=== PATIENT | female | born 1955 | race Caucasian/White ===

== ENCOUNTER 2022-03-12 15:25 | Observation (INO) ==
--- NOTE | 2022-03-12 16:07 | Emergency Department Note ---
Impression & Plan Falls frequently, Generalized muscle weakness, Ambulatory dysfunction ED Provider Note NAME: GHAZAL REED AGE: 66 SEX: F : 1955 ARRIVES VIA: Ambulance INFORMANT: Patient, ED PROVIDER(S): Ta Evans DO CHIEF COMPLAINT: Fall HPI: The patient is a 66-year-old female who presented to the emergency department after a fall. The patient fell injuring her hip. She states she has pain in both hips but mostly on the left. She states she was able to ambulate using a walker. She denies having any chest pain or difficulty breathing. She does not think she lost consciousness. She denies having any fever or recent illnesses. She is not recently been seen by her doctor. She lives alone. She states she has been compliant with her usual outpatient medications. She called 911 because of severe pain that she was trying to ambulate. ROS: See above HPI for pertinent positives & negatives. A total of 10 systems reviewed and were otherwise negative. PAST MEDICAL HISTORY: See Below PAST SURGICAL HISTORY: See Below FAMILY HISTORY: See Below SOCIAL HISTORY: See Below HOME MEDICATIONS: See Below ALLERGIES: See Below VITALS: See Below PHYSICAL EXAMINATION: GENERAL: The patient is awake and alert. She is somewhat anxious appearing. EYES: The conjunctivae are clear. The pupils are round and reactive. EARS, NOSE, MOUTH AND THROAT: The nose is without any evidence of any deformity. Mucous membranes are moist. Tongue is midline. NECK: The neck is nontender and supple. RESPIRATORY: Normal respiratory effort is noted there is no evidence of wheezing rhonchi or rales CARDIOVASCULAR: Regular rate and rhythm noted there no murmurs rubs or gallops normal S1 normal S2. GASTROINTESTINAL: The abdomen is soft. Abdomen is nontender. BACK: No midline tenderness or or step-off noted range of motion in flexion extension as well as rotation no signs of muscle spasm noted MUSCULOSKELETAL/EXTREMITIES: There is pain with range of motion testing of both hips. There is no shortening or deformity. SKIN: There is no obvious evidence of any rash. There are no petechiae, pallor or cyanosis noted. NEUROLOGIC: Patient is awake alert and oriented x3. Strength is symmetric but diminished bilaterally. MEDICAL DECISION MAKING: The patient is a 66-year-old female who presented to the emergency department by ambulance for difficulty ambulating. The patient was at home and had multiple falls today. She presented to the emergency department by ambulance. She normally walks with a walker. She was evaluated in the emergency department. Radiographic studies were obtained. She had no specific injury noted on radiographic studies. Attempt to ambulate the patient did show that she had very severe pain and difficulty walking. This reason I discussed her case with the on-call [facility] hospitalist. She may require further evaluation for rehab. Triage Nursing notes reviewed. Prior medical records reviewed Vital Signs: reviewed and remarkable for no significant abnormalities Differential diagnosis: Infection, dehydration, metabolic abnormality, hypo/hyperglycemia, electrolyte disturbance, anemia, hypoxia, cardiac sources, intracerebral event, toxicologic, neurologic, as well as other pathologies. ER treatment provided: See below Diagnostics interpreted by me: ECG: EKG was obtained in the emergency department. My interpretation is normal sinus rhythm at 76 bpm. There is no ectopy. There is no acute ST segment abnormalities noted. Poor R wave progression was noted. No previous tracing was available. Cardiac Monitoring: An order was placed for continuous cardiac monitoring. The monitor shows a rate of 86 bpm with sinus rhythm. Laboratory studies: As stated above and show below. Imaging studies: See below Consultation(s): The case was discussed with the on-call [facility] hospitalist. They will evaluate the patient in the emergency department. Past Med/Surg History Medical History Hypertension Surgical History History of delivery History of cholecystectomy History of surgery shunt placed (unknown location) Family History Father Diabetes Heart disease Hypertension Daughter Hypertension Other Allergies Hearing loss No family history of bleeding disorder Denies family history of Cancer Stroke Asthma Social History Smoking Status: Never smoker Hx Alcohol Use: No Hx Substance Use: No Preferred Language: Nauruan marital status: / current occupational status: retired and disabled How many Children do You have: 3 Feels Safe at Home: Yes Allergies Allergies Allergy/AdvReac Type Severity Reaction Status Date / Time chocolate flavor Allergy Unknown GI UPSET Verified 01/18/22 16:50 milk Allergy Unknown GI UPSET Verified 01/18/22 16:50 nut - unspecified Allergy Unknown GI Unverified 01/18/22 16:50 UPSET-PEANUTS, TREE NUTS codeine AdvReac Intermediate nausea Verified 01/18/22 16:50 vomiting Home Meds Home Medications Medication Instructions Recorded Confirmed amlodipine 10 mg tablet (Norvasc) 10 mg PO QAM 07/08/21 01/18/22 calcium carbonate 600 mg-vitamin 1 tab PO DAILY@1200 07/08/21 01/18/22 D3 5 mcg (200 unit) tablet (Calcium 600 + D(3)) divalproex 250 mg tablet,delayed 250 mg PO BID 07/08/21 01/18/22 release (Depakote) famotidine 40 mg tablet (Pepcid) 40 mg PO QAM 07/08/21 01/18/22 gabapentin 300 mg capsule 300 mg PO UD 07/08/21 01/18/22 (Neurontin) levothyroxine 100 mcg tablet 100 mcg PO QAM 07/08/21 01/18/22 (Synthroid) loratadine 10 mg tablet (Allergy 10 mg PO QAM 07/08/21 01/18/22 Relief (loratadine)) losartan 25 mg tablet (Cozaar) 25 mg PO QAM 07/08/21 01/18/22 magnesium oxide 400 mg (241.3 mg 400 mg PO DAILY@1200 07/08/21 01/18/22 magnesium) tablet (MagOx) montelukast 10 mg tablet 10 mg PO HS 07/08/21 01/18/22 (Singulair) pantoprazole 20 mg tablet,delayed 20 mg PO QAM 07/08/21 01/18/22 release (Protonix) sertraline 100 mg tablet (Zoloft) 100 mg PO HS 07/08/21 01/18/22 sucralfate 1 gram tablet (Carafate) 1 g PO QID 07/08/21 01/18/22 acetaminophen 500 mg tablet (Pain 1,000 mg PO TID 01/18/22 01/18/22 Relief Extra Strength) buspirone 5 mg tablet 5 mg PO DAILY 01/18/22 01/18/22 Previous Rx's Medication Instructions Recorded tamsulosin 0.4 mg capsule 0.4 mg PO DAILY #90 cap 12/02/21 Results & Data (ED) Vital Signs Vital Signs - 24 hr 03/12/22 15:30 03/12/22 16:00 03/12/22 16:03 Temperature 36.8 C Temperature Source Oral Pulse Rate 78 71 Pulse Rate [Apical] Pulse Rate from SpO2 Sensor 72 Respiratory Rate 16 21 Respiratory Effort / Characteristics Non-Labored Respiratory Depth Normal Blood Pressure 126/68 114/51 L Blood Pressure [Right Arm] Blood Pressure Mean 87 72 Blood Pressure Mean [Right Arm] Pulse Oximetry 96 98 96 Oxygen Delivery Method Room Air Room Air Sepsis Recent Fever Within 48 Hours No Sepsis New/Unexplained Change in Mental Status No Sepsis Action Taken by Nursing No Action Required 03/12/22 16:30 03/12/22 17:10 03/12/22 17:31 Temperature Temperature Source Pulse Rate 77 8 L Pulse Rate [Apical] 72 Pulse Rate from SpO2 Sensor Respiratory Rate 16 16 Respiratory Effort / Characteristics Non-Labored Respiratory Depth Normal Blood Pressure 146/56 H Blood Pressure [Right Arm] 136/72 Blood Pressure Mean 86 Blood Pressure Mean [Right Arm] 93 Pulse Oximetry 97 99 Oxygen Delivery Method Room Air Room Air Sepsis Recent Fever Within 48 Hours Sepsis New/Unexplained Change in Mental Status Sepsis Action Taken by Nursing 03/12/22 17:33 Temperature Temperature Source Pulse Rate 86 Pulse Rate [Apical] Pulse Rate from SpO2 Sensor 86 Respiratory Rate 16 Respiratory Effort / Characteristics Respiratory Depth Blood Pressure 136/76 Blood Pressure [Right Arm] Blood Pressure Mean 96 Blood Pressure Mean [Right Arm] Pulse Oximetry 96 Oxygen Delivery Method Sepsis Recent Fever Within 48 Hours Sepsis New/Unexplained Change in Mental Status Sepsis Action Taken by Detention Medications Current Medication List: was personally reviewed by me Laboratory Data Attestation: I reviewed the patient's lab results. Result diagrams: 03/12/22 15:54 03/12/22 15:54 Lab Results 03/12/22 03/12/22 03/12/22 Range/Units 15:54 15:54 15:54 WBC 7.95 (4.8-10.8) K/uL RBC 4.31 (4.2-5.4) M/uL Hgb 12.3 (12.0-16.0) g/dL Hct 37.8 (37-47) % MCV 87.7 (80-100) fL MCH 28.5 (25-34) pg MCHC 32.5 (32-36) g/dL RDW Std Deviation 45.7 (36.4-46.3) fL RDW Coeff of Debra 14.1 (11.5-14.5) % Plt Count 226 (130-400) K/uL MPV 9.4 (7.4-10.4) fL Immature Gran % (Auto) 0.3 % Neut % (Auto) 60.5 % Lymph % (Auto) 25.4 % [place] % (Auto) 11.2 % Eos % (Auto) 2.3 % Baso % (Auto) 0.3 % Neut # (Auto) 4.82 (1.4-6.5) K/uL Lymph # (Auto) 2.02 (1.2-3.4) K/uL [place] # (Auto) 0.89 H (0.11-0.59) K/uL Eos # (Auto) 0.18 (0-0.5) K/uL Baso # (Auto) 0.02 (0-0.2) K/uL Immature Gran # (Auto) 0.02 (0.00-0.02) K/uL PT 10.1 (9.0-12.0) Seconds INR 0.9 (0.9-1.1) APTT 26.6 (21.0-31.0) Seconds PTT Ratio 1.0 Sodium (136-145) mmol/L Potassium (3.5-5.1) mmol/L Chloride (98-107) mmol/L Carbon Dioxide (21-32) mmol/L Anion Gap (3-11) BUN (6-23) mg/dl Creatinine (0.6-1.2) mg/dl Est Cr Clr Drug Dosing Est GFR ( Amer) ml/min Est GFR (Non-Af Amer) ml/min BUN/Creatinine Ratio (10-20) Glucose (70-99(Fasting)) mg/dl Calcium (8.5-10.1) mg/dl Magnesium (1.7-2.4) mg/dl Total Bilirubin (0.2-1.0) mg/dl AST (13-39) U/L ALT (7-52) U/L Alkaline Phosphatase (34-104) U/L Total Creatine Kinase (26-192) U/L Troponin I High Sens < 2.3 (0-14) pg/ml Total Protein (6.0-8.3) gm/dl Albumin (3.4-5.0) gm/dl Globulin (2.5-4.0) gm/dl Albumin/Globulin Ratio (0.9-2) TSH (0.300-4.500) uIu/ml 03/12/22 03/12/22 Range/Units 15:54 15:54 WBC (4.8-10.8) K/uL RBC (4.2-5.4) M/uL Hgb (12.0-16.0) g/dL Hct (37-47) % MCV (80-100) fL MCH (25-34) pg MCHC (32-36) g/dL RDW Std Deviation (36.4-46.3) fL RDW Coeff of Debra (11.5-14.5) % Plt Count (130-400) K/uL MPV (7.4-10.4) fL Immature Gran % (Auto) % Neut % (Auto) % Lymph % (Auto) % [place] % (Auto) % Eos % (Auto) % Baso % (Auto) % Neut # (Auto) (1.4-6.5) K/uL Lymph # (Auto) (1.2-3.4) K/uL [place] # (Auto) (0.11-0.59) K/uL Eos # (Auto) (0-0.5) K/uL Baso # (Auto) (0-0.2) K/uL Immature Gran # (Auto) (0.00-0.02) K/uL PT (9.0-12.0) Seconds INR (0.9-1.1) APTT (21.0-31.0) Seconds PTT Ratio Sodium 142 (136-145) mmol/L Potassium 4.0 (3.5-5.1) mmol/L Chloride 105 (98-107) mmol/L Carbon Dioxide 28 (21-32) mmol/L Anion Gap 9 (3-11) BUN 8 (6-23) mg/dl Creatinine 0.64 (0.6-1.2) mg/dl Est Cr Clr Drug Dosing Not Reportable Est GFR ( Amer) 109.3 ml/min Est GFR (Non-Af Amer) 94.3 ml/min BUN/Creatinine Ratio 12.5 (10-20) Glucose 113 H (70-99(Fasting)) mg/dl Calcium 9.7 (8.5-10.1) mg/dl Magnesium 2.0 (1.7-2.4) mg/dl Total Bilirubin 0.4 (0.2-1.0) mg/dl AST 17 (13-39) U/L ALT 18 (7-52) U/L Alkaline Phosphatase 61 (34-104) U/L Total Creatine Kinase 47 (26-192) U/L Troponin I High Sens (0-14) pg/ml Total Protein 7.0 (6.0-8.3) gm/dl Albumin 4.3 (3.4-5.0) gm/dl Globulin 2.7 (2.5-4.0) gm/dl Albumin/Globulin Ratio 1.6 (0.9-2) TSH 3.508 (0.300-4.500) uIu/ml Administered Medications Discontinued Medications Sodium Chloride (Nss) 500 mls @ 999 mls/hr IV .Q31M DEMETRIUS Stop: 03/12/22 16:45 Last Admin: 03/12/22 16:33 Dose: 999 mls/hr Documented by: [id number] Imaging Data Radiologist's Impression: Cervical Spine CT 03/12/22 16:03 CT SCAN OF THE CERVICAL SPINE CLINICAL HISTORY: Fall. COMPARISON STUDY: CT of the cervical spine dated 01/18/2022. TECHNIQUE: CT scan of the cervical spine is performed from the skull base to the upper thoracic spine. Images are reviewed in the axial, sagittal, and coronal planes. IV contrast was not administered for this examination. A dose lowering technique was utilized adhering to the principles of ALARA. FINDINGS: Skeletal structures: The skeletal structures are osteopenic. There is no evidence of fracture or subluxation involving the cervical spine. Vertebral body height and alignment are maintained. There is straightening of the cervical lordosis. Anterior osteophytes are seen throughout. The odontoid process and lateral masses are intact. The atlantoaxial articulation is preserved noting mild productive degenerative change. The spinous processes appear intact. There is mild multilevel cervical spondylosis. Uncovertebral and facet arthropathy are noted at several levels. Intervertebral discs: There is moderate to advanced disc space narrowing at C4- C5, C5-C6, and C6-C7 with associated endplate sclerosis. Milder narrowing is seen at the remaining cervical levels. Central canal: Large posterior disc osteophyte complexes at C4-C5, C5-C6, and C6-C7 likely contribute to acquired compromise of the central canal. Soft tissues: The prevertebral and paraspinous soft tissues are within normal limits. Atherosclerotic calcification is noted in the carotid bulbs. The thyroid gland is heterogeneous. A ventriculostomy catheter is noted in the soft tissues of the right anterior neck. Calvarium: The visualized calvarium at the skull base appears intact. Brain parenchyma: Partially visualized brain parenchyma at the skull base shows involutional change and severe hydrocephalus.. Sinuses and mastoids: The visualized paranasal sinuses are clear. The mastoid air cells are well pneumatized. Lung apices: Clear as visualized. IMPRESSION: 1. There is no evidence of fracture or subluxation involving the cervical spine. 2. Osteopenia and spondylotic change as above. ACT 112: Negative or not required by law. Electronically signed by: Bryon Moscoso M.D. 03/12/2022 4:52 PM Chest X-Ray 03/12/22 16:03 XR chest 1V portable CLINICAL HISTORY: weakness TECHNIQUE: Single frontal radiograph of the chest was obtained. Comparison: Comparison is made to chest radiographs 01/18/2022 FINDINGS: No lines and tubes are seen. Calcified aortic knob is seen. The lungs are clear. No evidence of pleural effusion or pneumothorax. IMPRESSION: No acute chest disease. ACT 112: Negative or not required by law. Electronically signed by: Merlin Franco M.D. 03/12/2022 4:[address] 03/12/22 16:03 CT head/brain wo con CLINICAL HISTORY: fall Technique: Contiguous axial CT images of the head were acquired from the base of the skull to the vertex without intravenous contrast administration. Images were viewed in brain, subdural and bone windows. Automated dose lowering techniques and/or adjustment according to patient size were utilized for this exam. Comparison: Comparison is made to CT head 01/18/2022 Findings: Redemonstration of ventriculomegaly with a shunt catheter terminating in the left aspect of the third ventricle and/or left lateral ventricle. Imaged portions of the paranasal sinuses and mastoid air cells are clear. The orbits appear normal. There are no acute fractures of the calvaria or scalp swelling. Impression: No evidence of hemorrhage or other acute finding. Redemonstration of hydrocephalus with a NETWORK CONTRACT MANAGER shunt in place. ACT 112: Negative or not required by law. Electronically signed by: Merlin Franco M.D. 03/12/2022 4:53 PM Hip/Pelvis X-Ray 03/12/22 16:03 SINGLE VIEW PELVIS; 2 VIEWS RIGHT HIP; 2 VIEWS LEFT HIP CLINICAL HISTORY: Fall. FINDINGS: An AP view of the pelvis with AP and frog-leg views of the right and left hip are correlated with pelvic CT dated 07/08/2021. The skeletal structures are osteopenic. There is no radiographic evidence of acute fracture involving the hips or bony pelvis. Mild degenerative joint space narrowing is present in the hips, right greater than left. The sacroiliac joints are normal. The overlying soft tissues are within normal limits. Phleboliths are noted in the pelvis. IMPRESSION: No acute bony abnormality is identified. Electronically signed by: Bryon Moscoso M.D. 03/12/2022 4:39 PM Discharge Plan Visit Data Chief Complaint: Fall ED Provider: Ta Evans Discharge Problem: Falls frequently, Generalized muscle weakness, Ambulatory dysfunction Patient Disposition: Being Evaluated by Hospitalist Forms Stand Alone Forms: [facility] Prescriptions Prescriptions: No Action tamsulosin 0.4 mg capsule 0.4 mg PO DAILY Qty: 90 RF: 3 buspirone 5 mg tablet 5 mg PO DAILY RF: 0 acetaminophen [Pain Relief Extra Strength] 500 mg tablet 1,000 mg PO TID RF: 0 divalproex [Depakote] 250 mg tablet,delayed release (DR/EC) 250 mg PO BID RF: 0 sucralfate [Carafate] 1 gram tablet 1 g PO QID RF: 0 famotidine [Pepcid] 40 mg tablet 40 mg PO QAM RF: 0 sertraline [Zoloft] 100 mg tablet 100 mg PO HS RF: 0 calcium carbonate-vitamin D3 [Calcium 600 + D(3)] 600 mg(1,500mg) -200 unit tablet 1 tab PO DAILY@1200 RF: 0 pantoprazole [Protonix] 20 mg tablet,delayed release (DR/EC) 20 mg PO QAM RF: 0 levothyroxine [Synthroid] 100 mcg tablet 100 mcg PO QAM RF: 0 magnesium oxide [MagOx] 400 mg (241.3 mg magnesium) tablet 400 mg PO DAILY@1200 RF: 0 amlodipine [Norvasc] 10 mg tablet 10 mg PO QAM RF: 0 losartan [Cozaar] 25 mg tablet 25 mg PO QAM RF: 0 gabapentin [Neurontin] 300 mg capsule 300 mg PO UD RF: 0 montelukast [Singulair] 10 mg tablet 10 mg PO HS RF: 0 loratadine [Allergy Relief (loratadine)] 10 mg tablet 10 mg PO QAM RF: 0 Referrals Referrals: Andrew Diane MD [Primary Care Provider] -
[2022-03-12 16:22] LABS: Basophils # (auto) 0.02 K/uL (0-0.2); Basophils % (auto) 0.3 %; Eosinophils # (auto) 0.18 K/uL (0-0.5); Eosinophils % (auto) 2.3 %; Hematocrit (blood only) 37.8 % (37-47); Hemoglobin 12.3 g/dL (12.0-16.0); Immature Granulocytes # (auto) 0.02 K/uL (0.00-0.02); Immature Granulocytes % (auto) 0.3 %; Lymphocytes # (auto) 2.02 K/uL (1.2-3.4); Lymphocytes % (auto) 25.4 %; Mean Corpuscular Hemoglobin 28.5 pg (25-34); Mean Corpuscular Hgb Conc 32.5 g/dL (32-36); Mean Corpuscular Volume 87.7 fL (80-100); Mean Platelet Volume 9.4 fL (7.4-10.4); Monocytes # (auto) 0.89 K/uL (0.11-0.59); Monocytes % (auto) 11.2 %; Neutrophils # (auto) 4.82 K/uL (1.4-6.5); Neutrophils % (auto) 60.5 %; Platelet Count 226 K/uL (130-400); RDW Coefficient of Variation 14.1 % (11.5-14.5); RDW Standard Deviation 45.7 fL (36.4-46.3); Red Blood Count 4.31 M/uL (4.2-5.4); White Blood Count 7.95 K/uL (4.8-10.8)
[2022-03-12] MEDS: SODIUM CHLORIDE 0.9% 500 ML IV SCH ×2 (16:33→18:47)
--- NOTE | 2022-03-12 16:41 | XRay Report ---
SINGLE VIEW PELVIS; 2 VIEWS RIGHT HIP; 2 VIEWS LEFT HIP CLINICAL HISTORY: Fall. FINDINGS: An AP view of the pelvis with AP and frog-leg views of the right and left hip are correlate d with pelvic CT dated 07/08/2021. The skeletal structures are osteopenic. There is no radiographic govind dence of acute fracture involving the hips or bony pelvis. Mild degenerative joint space narrowing is present in the hips, right greater than left. The sacroiliac joints are normal. The overlying soft t issues are within normal limits. Phleboliths are noted in the pelvis. IMPRESSION: No acute bony abnormality is identified. Electronically signed by: Bryon Moscoso M.D. 03/12/2022 4:39 PM
--- NOTE | 2022-03-12 16:41 | XRay Report ---
XR chest 1V portable CLINICAL HISTORY: weakness TECHNIQUE: Single frontal radiograph of the chest was obtained. Comparison: Comparison is made to chest radiographs 01/18/2022 FINDINGS: No lines and tubes are seen. Calcified aortic knob is seen. The lungs are clear. No evidence of pleur al effusion or pneumothorax. IMPRESSION: No acute chest disease. ACT 112: Negative or not required by law. Electronically signed by: Merlin Franco M.D. 03/12/2022 4:40 PM
[2022-03-12 16:42] LABS: INR 0.9 (0.9-1.1); Partial Thromboplastin Time 26.6 Seconds (21.0-31.0); Prothrombin Time 10.1 Seconds (9.0-12.0)
--- NOTE | 2022-03-12 16:53 | CT Scan Report ---
CT SCAN OF THE CERVICAL SPINE CLINICAL HISTORY: Fall. COMPARISON STUDY: CT of the cervical spine dated 01/18/2022. TECHNIQUE: CT scan of the cervical spine is performed from the skull base to the upper thoracic spine . Images are reviewed in the axial, sagittal, and coronal planes. IV contrast was not administered fo r this examination. A dose lowering technique was utilized adhering to the principles of ALARA. FINDINGS: Skeletal structures: The skeletal structures are osteopenic. There is no evidence of fracture or subl uxation involving the cervical spine. Vertebral body height and alignment are maintained. There is st raightening of the cervical lordosis. Anterior osteophytes are seen throughout. The odontoid process and lateral masses are intact. The atlantoaxial articulation is preserved noting mild productive dege nerative change. The spinous processes appear intact. There is mild multilevel cervical spondylosis. Uncovertebral and facet arthropathy are noted at several levels. Intervertebral discs: There is moderate to advanced disc space narrowing at C4-C5, C5-C6, and C6-C7 w ith associated endplate sclerosis. Milder narrowing is seen at the remaining cervical levels. Central canal: Large posterior disc osteophyte complexes at C4-C5, C5-C6, and C6-C7 likely contribute to acquired compromise of the central canal. Soft tissues: The prevertebral and paraspinous soft tissues are within normal limits. Atherosclerotic calcification is noted in the carotid bulbs. The thyroid gland is heterogeneous. A ventriculostomy c atheter is noted in the soft tissues of the right anterior neck. Calvarium: The visualized calvarium at the skull base appears intact. Brain parenchyma: Partially visualized brain parenchyma at the skull base shows involutional change a nd severe hydrocephalus.. Sinuses and mastoids: The visualized paranasal sinuses are clear. The mastoid air cells are well pneu matized. Lung apices: Clear as visualized. IMPRESSION: 1. There is no evidence of fracture or subluxation involving the cervical spine. 2. Osteopenia and spondylotic change as above. ACT 112: Negative or not required by law. Electronically signed by: Bryon Moscoso M.D. 03/12/2022 4:52 PM
[2022-03-12 16:54] LABS: Alanine Aminotransferase 18 U/L (7-52); Albumin Globulin Ratio 1.6 (0.9-2); Albumin Level 4.3 gm/dl (3.4-5.0); Alkaline Phosphatase 61 U/L (34-104); Anion Gap 9 (3-11); Aspartate Aminotransferase 17 U/L (13-39); BUN Creatinine Ratio 12.5 (10-20); Bilirubin,Total 0.4 mg/dl (0.2-1.0); Blood Urea Nitrogen 8 mg/dl (6-23); Calcium 9.7 mg/dl (8.5-10.1); Carbon Dioxide 28 mmol/L (21-32); Chloride 105 mmol/L (98-107); Creatine Kinase 47 U/L (26-192); Est GFR (African American) 109.3 ml/min; Est GFR (Non-African American) 94.3 ml/min; Globulin 2.7 gm/dl (2.5-4.0); Glucose 113 mg/dl (70-99(Fasting)); Sodium 142 mmol/L (136-145)
--- NOTE | 2022-03-12 16:54 | CT Scan Report ---
CT head/brain wo con CLINICAL HISTORY: fall Technique: Contiguous axial CT images of the head were acquired from the base of the skull to the tri yee without intravenous contrast administration. Images were viewed in brain, subdural and bone [facility]. Automated dose lowering techniques and/or adjustment according to patient size were utilized for this exam. Comparison: Comparison is made to CT head 01/18/2022 Findings: Redemonstration of ventriculomegaly with a shunt catheter terminating in the left aspect of the third ventricle and/or left lateral ventricle. Imaged portions of the paranasal sinuses and mastoid air cells are clear. The orbits appear normal. There are no acute fractures of the calvaria or scalp swelling. Impression: No evidence of hemorrhage or other acute finding. Redemonstration of hydrocephalus with a FUNDRAISING DIRECTOR shunt in place. ACT 112: Negative or not required by law. Electronically signed by: Merlin Franco M.D. 03/12/2022 4:53 PM
--- NOTE | 2022-03-12 19:52 | History & Physical Report ---
Date of Service March 12, 2022 Assessment & Plan (1) Ambulatory dysfunction: Plan: 66-year-old woman with medical history of recurrent falls, polyneuropathy, hydrocephalus, hypertension, GERD, and depression, who presents to the ED after another fall. Now awaiting evaluation for placement in long-term living facility. Ambulatory dysfunction/falls -Normal labs. No abnormalities detected on imaging. * Admitted to [facility] without telemetry * Case management consult placed. Depression/anxiety * Continue home sertraline, buspirone Polyneuropathy/chronic headache * Continue home gabapentin, Depakote, Tylenol GERD * Home Pepcid Urinary incontinence * Continue home tamsulosin Hypothyroidism -TSH 3.5 * Continue home levothyroxine Hypertension * Continue home amlodipine, losartan Code: DNR/DNI Dispo: Med-Surg FEN/GI: Regular diet DVT Prophylaxis: Lovenox 40 mg q24h PT/OT: Ordered (2) Retention of urine, unspecified: (3) GERD (gastroesophageal reflux disease): (4) Depression: History of Present Illness Chief Complaint: Fall Primary Care Provider: Andrew Diane MD 66-year-old woman with a medical history of hypertension, neuropathy, GERD, seizures, hypothyroidism, and depression, who presents today via ambulance to the emergency room after a fall. She usually ambulates with her walker, but has been growing weaker for months now. She admits to having multiple falls before this incident, though she was usually able to get back up and without lingering pain. She denies loss of consciousness. She denies recent illness. She reported hip pain bilaterally (left >right). Patient lives alone. She reports being compliant with her medications, and she has them bubble wrapped and sent to her by her pharmacy. ED course: Lab work was largely within normal limits. Imaging (CT cervical spi ne, CXR, CT head, XR hip/pelvis) all negative for acute trauma or abnormalities. However, on exam, she was severely limited without her walker, with poor mobility with it. Allergies Allergy/AdvReac Type Severity Reaction Status Date / Time chocolate flavor Allergy Unknown GI UPSET Verified 03/12/22 19:53 milk Allergy Unknown GI UPSET Verified 03/12/22 19:53 nut - unspecified Allergy Unknown GI Unverified 03/12/22 19:53 UPSET-PEANUTS, TREE NUTS codeine AdvReac Intermediate nausea Verified 03/12/22 19:53 vomiting Home Medications Medication Instructions Recorded Confirmed Type amlodipine 10 mg tablet (Norvasc) 10 mg PO QAM 07/08/21 03/12/22 History calcium carbonate 600 mg-vitamin 1 tab PO DAILY@1200 07/08/21 03/12/22 History D3 5 mcg (200 unit) tablet (Calcium 600 + D(3)) divalproex 250 mg tablet,delayed 250 mg PO BID 07/08/21 03/12/22 History release (Depakote) famotidine 40 mg tablet (Pepcid) 40 mg PO QAM 07/08/21 03/12/22 History gabapentin 300 mg capsule See Rx Instructions .ROUTE .COMPLEX 07/08/21 03/12/22 History (Neurontin) levothyroxine 100 mcg tablet 100 mcg PO QAM 07/08/21 03/12/22 History (Synthroid) loratadine 10 mg tablet (Allergy 10 mg PO QAM 07/08/21 03/12/22 History Relief (loratadine)) losartan 25 mg tablet (Cozaar) 25 mg PO QAM 07/08/21 03/12/22 History magnesium oxide 400 mg (241.3 mg 400 mg PO DAILY@1200 07/08/21 03/12/22 History magnesium) tablet (MagOx) montelukast 10 mg tablet 10 mg PO HS 07/08/21 03/12/22 History (Singulair) pantoprazole 20 mg tablet,delayed 20 mg PO QAM 07/08/21 03/12/22 History release (Protonix) sertraline 100 mg tablet (Zoloft) 100 mg PO HS 07/08/21 03/12/22 History sucralfate 1 gram tablet (Carafate) 1 g PO QID 07/08/21 03/12/22 History acetaminophen 500 mg tablet (Pain 1,000 mg PO TID 01/18/22 03/12/22 History Relief Extra Strength) buspirone 5 mg tablet 5 mg PO QAM 01/18/22 03/12/22 History tamsulosin 0.4 mg capsule 0.4 mg PO QAM 03/12/22 03/12/22 History Past Med/Surg History Medical History (Updated 03/12/22 @ 20:00 by Daisha Sinha MD) Hypertension Surgical History History of delivery History of cholecystectomy History of surgery shunt placed (unknown location) Family History Father Diabetes Heart disease Hypertension Daughter Hypertension Other Allergies Hearing loss No family history of bleeding disorder Denies family history of Cancer Stroke Asthma Social History Smoking Status: Never smoker Second Hand Exposure: No; Do You Dip or Chew Tobacco: No; Tobacco Cessation Education Requested by Patient: No Hx Alcohol Use: No Hx Substance Use: No Preferred Language: Indonesian Communication Ability: Effective What Job Titles Mean Required: No Beliefs That Will Affect Care: None marital status: / Current Living Situation: Alone current occupational status: retired and disabled How many Children do You have: 3 Other Information That Helps Us Care for You: No Feels Safe at Home: Yes Safety Concerns: Feels Safe At This Time Assistive Devices: Walker and Wheelchair Review of Systems Review of Systems: All systems reviewed & are unremarkable except as noted in HPI & below Physical Exam Physical Exam: General: Patient is AAO x3. She appears mildly anxious, but is in no acute distress. HEENT: Oropharynx is markedly dry; no lymphadenopathy; normal dentition. CV: Regular rate and rhythm. Normal S1 and S2. No murmurs gallops or rubs. No pedal edema. Pulmonary: Lungs are clear to auscultation bilaterally. No crackles, rhonchi, or wheezes. Abdomen: Large, distended abdomen. No bruits heard on auscultation. No tendernes s to deep palpation. No guarding or rebound. MSK: Limited ROM at lower extremities. 4/5 strength at the hip on the right. 3/5 strength at the hip on the left. Psych: Mildly anxious. Congruent mood and affect. Results & Data Results & Data ([facility]) Vital Signs (Past 12 Hours) Vital Signs Temp Pulse Pulse Resp BP BP Pulse Ox 03/12/22 19:00 68 16 130/70 97 03/12/22 17:33 86 16 136/76 96 03/12/22 17:31 8 L 03/12/22 17:10 72 16 136/72 99 03/12/22 16:30 77 16 146/56 H 97 03/12/22 16:03 96 03/12/22 16:00 71 21 114/51 L 98 03/12/22 15:30 36.8 C 78 16 126/68 96 Supervising Physician Co-Signing Physician Notes Attending addendum: I have physically seen this patient, have supervised the medical residents activities, and agree with the H&P unless as otherwise noted. Assessment and Plan: Ambulatory dysfunction/falls- Consult PT/OT/case management Question confusion of polyneuropathy Anxiety/depression/polyneuropathy/chronic headache- Continue sertraline, buspirone, gabapentin, Depakote and Tylenol Remaining orders and notations as noted Resident Activity Tracking Resident Involvement: Resident Care Provided Care Provided: Adult Hospital Medicine
[2022-03-12 21:42] LABS: Appearance Urine Cloudy (Clear); Bacteria Urine Automated 2+ (Negative); Bilirubin Urine Negative (Negative); Blood Urine Trace (Negative); Cast Urine Automated 0 /lpf (0-5); Color Urine Yellow; Epithelial Cell Urine Auto 0-5 /lpf (0-5); Glucose Urine UA Negative (Negative); Ketones Urine Trace (Negative); Leukocyte Esterase Urine 3+ (Negative); Nitrite Urine Negative (Negative); RBC Urine Automated 0-4 /hpf (0-4); Specific Gravity Urine 1.013 (1.000-1.030); Urobilinogen Urine Negative (Negative); WBC Urine Automated >30 /hpf (0-5); pH Urine >= 9.0 (4.5-7.5)
[2022-03-12 21:46] LABS: Protein Urine 1+ (Negative)
[2022-03-12] MEDS: MONTELUKAST SODIUM 10 MG TABLET PO SCH (23:27)
[2022-03-12] MEDS: SERTRALINE HCL 100 MG TABLET PO SCH (23:27)
[2022-03-12] MEDS: DIVALPROEX DELAY RELEASE 250 MG TABEC PO SCH (23:27)
[2022-03-12] MEDS: SUCRALFATE 1 GM TAB PO SCH (23:27)
[2022-03-12] MEDS: ACETAMINOPHEN 500 MG TAB PO SCH (23:28)
[2022-03-12] MEDS: GABAPENTIN 300 MG CAP PO SCH (23:29)
[2022-03-13] MEDS: LEVOTHYROXINE SODIUM 100 MCG TABLET PO SCH (06:09)
[2022-03-13] MEDS: FAMOTIDINE 40 MG TABLET PO SCH (09:02)
[2022-03-13] MEDS: LOSARTAN POTASSIUM 25 MG TAB PO SCH (09:02)
[2022-03-13] MEDS: PANTOprazole 40 MG TAB PO SCH (09:02)
[2022-03-13] MEDS: ACETAMINOPHEN 500 MG TAB PO SCH ×2 (09:03→14:23)
[2022-03-13] MEDS: TAMSULOSIN HCL 0.4 MG CAP PO SCH (09:03)
[2022-03-13] MEDS: GABAPENTIN 300 MG CAP PO SCH ×2 (09:03→20:45)
[2022-03-13] MEDS: DIVALPROEX DELAY RELEASE 250 MG TABEC PO SCH ×2 (09:04→20:44)
[2022-03-13] MEDS: amLODIPine BESYLATE 5 MG TAB PO SCH (09:04)
[2022-03-13] MEDS: busPIRone 5 MG TAB PO SCH (09:04)
[2022-03-13] MEDS: SUCRALFATE 1 GM TAB PO SCH ×4 (09:05→20:35)
[2022-03-13] MEDS: ENOXAPARIN INJ 40 MG/0.4 ML SYR SQ SCH (09:49)
[2022-03-13 10:14] LABS: Estimated Average Glucose 131 mg/dl; Hemoglobin A1C 6.2 % (4.5-5.6)
--- NOTE | 2022-03-13 11:16 | Hospitalist Progress Note ---
Date of Service March 13, 2022 Assessment & Plan (1) Ambulatory dysfunction: Plan: 66-year-old woman with medical history of traumatic brain injury, hydrocephalous s/p LIME SLUDGE KILN OPERATOR shunt placement, and ambulatory dysfunction was brought in to the ED for evaluation after falling at home. Ambulatory dysfunction/falls - acute on chronic - no metabolic derangement, no acute anatomical abnormalities detected on CT head or Xray of hip/pelvis - PT/OT to evaluate; suspect patient will likely be recommended for SNF vs. 24 hour in-home care, as patient returning home with current level of assistance seems to be an unsafe plan. CM following Prediabetes - A1c 6.2 - carb consistent diet Depression/anxiety * Continue home sertraline, buspirone Polyneuropathy/chronic headache * Continue home gabapentin, Depakote, Tylenol GERD * Home Pepcid Urinary retention * Continue home tamsulosin Hypothyroidism -TSH 3.5 * Continue home levothyroxine Hypertension * Continue home amlodipine, losartan Code: DNR/DNI Dispo: Med-Surg FEN/GI: carb consistent diet DVT Prophylaxis: Lovenox 40 mg q24h PT/OT: Ordered (2) Retention of urine, unspecified: (3) GERD (gastroesophageal reflux disease): (4) Depression: Admission and Anticipated Discharge Date Admission Date: March 12, 2022 Supervising Physician Co-Signing Physician Notes I personally examined the patient and verified all diaz points of history and exam, discussed case, and agree with decision making with Dr Christopher durand. waiting on options vitals noted nad heent nc at mmm breathing unlabored no accessory muscles good effort weakness/hydrocephalus/deconditioning - working on safe options. nothing appears acute - more acute on chronic decline otherwise as above Subjective Patient is feeling well - relieved to hear she sustained no injuries from fall. Patient currently lives home alone - her niece comes to help her take a bath and get around for a few hours each day - however the niece works a time lock expert job and is a single mother. The patient does not want to have to move into a SNF for moth exterminator care Review of Systems Review of Systems: All systems reviewed & are unremarkable except as noted in HPI & below Physical Exam Constitutional: WD/WN, vitals as above cooperative; no acute distress Eyes: + anicteric sclerae ENMT: external ear and nose normal, oropharynx normal Neck: normal visual inspection and trachea midline Respiratory: normal respiratory effort, lungs clear to auscultation Cardiovascular: RRR, no murmur, no edema Heart Sounds: normal S1 and normal S2 Gastrointestinal (Abdomen): normal bowel sounds, soft, nontender, no hepatosplenomegaly Psychiatric: A+Ox3, euthymic affect Results & Data Results & Data ([facility]) Vital Signs (Past 12 Hours) Vital Signs Temp Pulse Resp BP Pulse Ox 03/13/22 07:33 36.8 C 70 20 130/70 94 Resident Activity Tracking Resident Involvement: Resident Care Provided Care Provided: Adult Hospital Medicine
[2022-03-13] MEDS: CALCIUM 600MG + VIT D 400 IU TAB PO SCH (12:30)
[2022-03-13] MEDS: MAGNESIUM OXIDE 400 MG TAB PO SCH (12:31)
[2022-03-13] MEDS ORDERED: ACETAMINOPHEN 325 MG TAB PO PRN (17:16)
[2022-03-13] MEDS ORDERED: POLYETHYLENE (MIRALAX) 17 GM PACK PO PRN (17:16)
[2022-03-13] MEDS ORDERED: MELATONIN 3 MG TAB PO PRN (17:16)
--- NOTE | 2022-03-13 18:13 | Billing Data ---
Date of Service March 13, 2022 Coding Level of Care Code 77313 Subseq Hosp Care Lvl 1
--- NOTE | 2022-03-13 19:33 | Electrocardiogram Report ---
Test Reason : Blood Pressure : / mmHG Vent. Rate : 076 BPM Atrial Rate : 076 BPM P-R Int : 144 ms QRS Dur : 088 ms QT Int : 414 ms P-R-T Axes : 030 -14 027 degrees QTc Int : 465 ms Poor data quality, interpretation may be adversely affected Normal sinus rhythm Nonspecific T wave abnormality No previous ECGs available Confirmed by Slava Maria ([id number]) on 03/13/2022 7:33:33 PM Referred By: REFERRED SELF Confirmed By:Slava Maria
[2022-03-13] MEDS: MONTELUKAST SODIUM 10 MG TABLET PO SCH (20:45)
[2022-03-13] MEDS: SERTRALINE HCL 100 MG TABLET PO SCH (20:46)
[2022-03-13] MEDS ORDERED: KETOROLAC TROMETHAMINE 15 MG/ML VIAL IV ONE (20:53)
--- NOTE | 2022-03-14 04:48 | Billing Data ---
Date of Service March 14, 2022 Coding Level of Care Code 84580 Initial Inpt Care Lvl 2
[2022-03-14] MEDS: LEVOTHYROXINE SODIUM 100 MCG TABLET PO SCH (05:51)
--- NOTE | 2022-03-14 07:57 | Hospitalist Progress Note ---
Date of Service March 14, 2022 Assessment & Plan (1) Ambulatory dysfunction: Plan: 66-year-old woman with medical history of traumatic brain injury, hydrocephalous s/p SAFETY EQUIPMENT TESTING SPECIALIST shunt placement, and ambulatory dysfunction was brought in to the ED for evaluation after falling at home. Ambulatory dysfunction/falls - acute on chronic - no metabolic derangement, no acute anatomical abnormalities detected on CT head or Xray of hip/pelvis - PT/OT to evaluate- Recommending SNF level rehab following discharge Calf Pain -Ongoing x1 month -No obvious signs of DVT other than pain at this time -Appropriate DVT prophylaxis with Lovenox -Continue to monitor, if worsening consider b/l doppler Prediabetes - A1c 6.2 - carb consistent diet Depression/anxiety * Continue home sertraline, buspirone Polyneuropathy/chronic headache * Continue home gabapentin, Depakote, Tylenol GERD * Home Pepcid Urinary retention * Continue home tamsulosin Hypothyroidism -TSH 3.5 * Continue home levothyroxine Hypertension * Continue home amlodipine, losartan Code: DNR/DNI Dispo: Med-Surg -- pending placement FEN/GI: carb consistent diet DVT Prophylaxis: Lovenox 40 mg q24h PT/OT: Ordered (2) Retention of urine, unspecified: (3) GERD (gastroesophageal reflux disease): (4) Depression: Admission and Anticipated Discharge Date Admission Date: March 12, 2022 Supervising Physician Co-Signing Physician Notes I personally examined the patient and verified all diaz points of history and exam, discussed case, and agree with decision making with Dr Shanel durand. waiting on options - deosn't like current situation but understands vitals noted nad heent nc at mmm breathing unlabored no accessory muscles good effort weakness/hydrocephalus/deconditioning - working on safe options. nothing appears acute - more acute on chronic decline. inpatient to be safe until placement options otherwise as above Subjective Patient evaluated at the bedside. She does note some bilateral calf pain this morning, but states that it is chronic and has been ongoing x1 month now. She also when questioned denies any urinary symptoms including dysuria, hematuria, frequency. She does note that she has some incontinence, however, this is also chronic and the reason why she has multiple bedside commodes in her home. Denies fever, chills, SOB, chest pain, abdominal pain. Review of Systems Review of Systems: All systems reviewed & are unremarkable except as noted in Subjective Physical Exam Constitutional: no acute distress Eyes: normal visual yao by confrontation Respiratory: normal respiratory effort, lungs clear to auscultation Cardiovascular: Rate/Rhythm: regular rate and regular rhythm Gastrointestinal (Abdomen): normal bowel sounds, soft, nontender, no hepatosplenomegaly Musculoskeletal: Mild TTP of calves b/l No redness, erythema, or swelling noted Results & Data Results & Data ([facility]) Vital Signs (Past 12 Hours) Vital Signs Temp Pulse Resp BP Pulse Ox 03/14/22 07:16 36.5 C 72 16 110/66 95 03/13/22 21:34 36.9 C 67 15 115/69 94 Resident Activity Tracking Resident Involvement: Resident Care Provided Care Provided: Adult Hospital Medicine
[2022-03-14] MEDS: SUCRALFATE 1 GM TAB PO SCH ×4 (08:58→21:20)
[2022-03-14] MEDS: PANTOprazole 40 MG TAB PO SCH (08:58)
[2022-03-14] MEDS: DIVALPROEX DELAY RELEASE 250 MG TABEC PO SCH ×2 (08:58→21:19)
[2022-03-14] MEDS: FAMOTIDINE 40 MG TABLET PO SCH (08:58)
[2022-03-14] MEDS: LOSARTAN POTASSIUM 25 MG TAB PO SCH (08:58)
[2022-03-14] MEDS: busPIRone 5 MG TAB PO SCH (08:58)
[2022-03-14] MEDS: amLODIPine BESYLATE 5 MG TAB PO SCH (08:58)
[2022-03-14] MEDS: TAMSULOSIN HCL 0.4 MG CAP PO SCH (08:58)
[2022-03-14] MEDS: ENOXAPARIN INJ 40 MG/0.4 ML SYR SQ SCH (08:59)
[2022-03-14] MEDS: GABAPENTIN 300 MG CAP PO SCH ×2 (09:03→21:20)
[2022-03-14] MEDS: MAGNESIUM OXIDE 400 MG TAB PO SCH (11:40)
[2022-03-14] MEDS: CALCIUM 600MG + VIT D 400 IU TAB PO SCH (11:40)
--- NOTE | 2022-03-14 17:10 | Billing Data ---
Date of Service March 14, 2022 Coding Level of Care Code 99241 Subseq Hosp Care Lvl 1
[2022-03-14] MEDS: SERTRALINE HCL 100 MG TABLET PO SCH (21:20)
[2022-03-14] MEDS: MONTELUKAST SODIUM 10 MG TABLET PO SCH (21:20)
[2022-03-15] MEDS: LEVOTHYROXINE SODIUM 100 MCG TABLET PO SCH (06:16)
--- NOTE | 2022-03-15 07:16 | Hospitalist Progress Note ---
Date of Service March 15, 2022 Assessment & Plan (1) Ambulatory dysfunction: Plan: 66-year-old woman with medical history of traumatic brain injury, hydrocephalous s/p TELEHEALTH DIRECTOR shunt placement, and ambulatory dysfunction was brought in to the ED for evaluation after falling at home. Ambulatory dysfunction/falls - acute on chronic - no metabolic derangement, no acute anatomical abnormalities detected on CT head or Xray of hip/pelvis - PT/OT to evaluate- Recommending SNF level rehab following discharge -- continue while inpatient Calf Pain -Ongoing x1 month -No obvious signs of DVT other than pain at this time -Appropriate DVT prophylaxis with Lovenox -Continue to monitor, if worsening consider b/l doppler Prediabetes - A1c 6.2 - carb consistent diet Depression/anxiety * Continue home sertraline, buspirone Polyneuropathy/chronic headache * Continue home gabapentin, Depakote, Tylenol GERD * Home Pepcid Urinary retention * Continue home tamsulosin Hypothyroidism -TSH 3.5 * Continue home levothyroxine Hypertension * Continue home amlodipine, losartan Code: DNR/DNI Dispo: Med-Surg -- pending placement FEN/GI: carb consistent diet DVT Prophylaxis: Lovenox 40 mg q24h PT/OT: Ordered (2) Retention of urine, unspecified: (3) GERD (gastroesophageal reflux disease): (4) Depression: Admission and Anticipated Discharge Date Admission Date: March 12, 2022 Supervising Physician Co-Signing Physician Notes I personally examined the patient and verified all diaz points of history and exam, discussed case, and agree with decision making with Dr Shanel durand. still waiting on options - doesn't like current situation but understands vitals noted nad heent nc at mmm breathing unlabored no accessory muscles good effort weakness/hydrocephalus/deconditioning - working on safe options - unfortunately case management not able to make progress on situation with weekend-related closures for referral/etc. nothing appears acute - more acute on chronic decl ine. inpatient to be safe until placement options otherwise as above Subjective Patient evaluated at the bedside this AM. No acute events overnight. Denies any concerns or complaints at this time. Review of Systems Review of Systems: All systems reviewed & are unremarkable except as noted in Subjective Physical Exam Constitutional: no acute distress Eyes: normal visual yao by confrontation Respiratory: normal respiratory effort, lungs clear to auscultation Cardiovascular: Rate/Rhythm: regular rate and regular rhythm Gastrointestinal (Abdomen): normal bowel sounds, soft, nontender, no hepatosplenomegaly Results & Data Results & Data ([facility]) Vital Signs (Past 12 Hours) Vital Signs Temp Pulse Resp BP BP Pulse Ox 03/15/22 06:57 36.5 C 63 18 119/63 94 03/14/22 22:21 37.3 C 77 16 120/73 95 Resident Activity Tracking Resident Involvement: Resident Care Provided Care Provided: Adult Hospital Medicine
[2022-03-15 07:19] LABS: Creatinine Clr Calc Pharmacy 84.8 ml/min; Est GFR (African American) 112.3 ml/min; Est GFR (Non-African American) 96.9 ml/min
[2022-03-15] MEDS: busPIRone 5 MG TAB PO SCH (08:25)
[2022-03-15] MEDS: PANTOprazole 40 MG TAB PO SCH (08:25)
[2022-03-15] MEDS: SUCRALFATE 1 GM TAB PO SCH ×4 (08:25→20:21)
[2022-03-15] MEDS: GABAPENTIN 300 MG CAP PO SCH ×2 (08:25→20:24)
[2022-03-15] MEDS: DIVALPROEX DELAY RELEASE 250 MG TABEC PO SCH ×2 (08:25→20:23)
[2022-03-15] MEDS: amLODIPine BESYLATE 5 MG TAB PO SCH (08:25)
[2022-03-15] MEDS: TAMSULOSIN HCL 0.4 MG CAP PO SCH (08:25)
[2022-03-15] MEDS: LOSARTAN POTASSIUM 25 MG TAB PO SCH (08:25)
[2022-03-15] MEDS: FAMOTIDINE 40 MG TABLET PO SCH (08:25)
[2022-03-15] MEDS: ENOXAPARIN INJ 40 MG/0.4 ML SYR SQ SCH (08:26)
[2022-03-15] MEDS: MAGNESIUM OXIDE 400 MG TAB PO SCH (13:50)
[2022-03-15] MEDS: CALCIUM 600MG + VIT D 400 IU TAB PO SCH (13:51)
--- NOTE | 2022-03-15 17:18 | Billing Data ---
Date of Service March 15, 2022 Coding Level of Care Code 54748 Subseq Hosp Care Lvl 1
[2022-03-15] MEDS: SERTRALINE HCL 100 MG TABLET PO SCH (20:22)
[2022-03-15] MEDS: MONTELUKAST SODIUM 10 MG TABLET PO SCH (20:22)
[2022-03-16] MEDS: LEVOTHYROXINE SODIUM 100 MCG TABLET PO SCH (05:47)
--- NOTE | 2022-03-16 06:21 | Hospitalist Progress Note ---
Date of Service March 16, 2022 Assessment & Plan (1) Ambulatory dysfunction: Plan: 66-year-old woman with medical history of traumatic brain injury, hydrocephalous s/p IT NETWORK ADMINISTRATOR shunt placement, and ambulatory dysfunction was brought in to the ED for evaluation after falling at home. Ambulatory dysfunction/falls - acute on chronic - no metabolic derangement, no acute anatomical abnormalities detected on CT head or Xray of hip/pelvis - PT/OT to evaluate- Recommending SNF level rehab following discharge -- continue while inpatient --> Goal [facility] to [facility] in [facility] near Daughter. CM assisting. Calf Pain - Ongoing x1 month - No obvious signs of DVT other than pain at this time - Appropriate DVT prophylaxis with Lovenox - Continue to monitor, if worsening consider b/l doppler Prediabetes - A1c 6.2 - carb consistent diet - Outpatient monitoring, counselling Depression/anxiety - Continue home sertraline, buspirone Polyneuropathy/chronic headache - Continue home gabapentin, Depakote, Tylenol GERD - Home Pepcid Urinary retention - Continue home tamsulosin Hypothyroidism -TSH 3.5 - Continue home levothyroxine Hypertension - Continue home amlodipine, losartan Code: DNR/DNI Dispo: Med-Surg -- pending placement FEN/GI: carb consistent diet DVT Prophylaxis: Lovenox 40 mg q24h (2) Retention of urine, unspecified: (3) GERD (gastroesophageal reflux disease): (4) Depression: Admission and Anticipated Discharge Date Admission Date: March 12, 2022 Supervising Physician Co-Signing Physician Notes I also saw the patient concurrent the resident physician and confirmed diaz portions the history and physical examination. I agree with the impression and plan as noted in the resident documentation. Awake, sleepy. No complaints otherwise this morning. Exam 116/73, 72, 16, 36.6, 96% room air Respirations nonlabored, lungs clear Heart regular Weakness/hydrocephalus/deconditioning Case management actively working on safe discharge options Chronic, stable, medical additions including impaired fasting glucose, depression/anxiety, GERD, urinary retention, hypothyroidism, and hypertension as delineated above. Subjective NAEO. Feeling ok this morning - still weak. Reports feeling jeanette to be here and progressing towards rehab. Denies pain, numbness tingling, Breathing well. Review of Systems Review of Systems: as per HPI Physical Exam Physical Exam: General: 66-year old F who is alert, oriented, and appears in no acute distress. HEENT: NCAT. - Eyes - Sclera are white, anicteric, and without injection. - Mouth - MMM - Neck - supple, no appreciable JVD Cardiac: Normal rate and regular rhythm; S1 and S2 present with no murmurs, rubs, or gallops. Pulmonary: Good respiratory effort with symmetric expansion of the chest. No use of accessory muscles. Lungs were clear to auscultation bilaterally with no crackles or wheezes. Abdominal: Normoactive bowel sounds. Abdomen was soft, nondistended, and non- tender to palpation. Extremities: Upper and lower extremities are warm and well perfused. LE, UE strength 4/5 bilaterally. No peripheral edema in the lower extremities bilaterally Psych: Well-developed, well-nourished, appropriately dressed for occasion. Behavior is cooperative and appropriate. Affect is WNL. Insight is appropriate. Results & Data Results & Data ([facility]) Vital Signs (Past 12 Hours) Vital Signs Temp Pulse Resp BP Pulse Ox 03/15/22 22:53 36.9 C 68 16 127/70 94 Resident Activity Tracking Resident Involvement: Resident Care Provided Care Provided: Adult Hospital Medicine
[2022-03-16] MEDS: busPIRone 5 MG TAB PO SCH (08:05)
[2022-03-16] MEDS: LOSARTAN POTASSIUM 25 MG TAB PO SCH (08:05)
[2022-03-16] MEDS: amLODIPine BESYLATE 5 MG TAB PO SCH (08:05)
[2022-03-16] MEDS: TAMSULOSIN HCL 0.4 MG CAP PO SCH (08:05)
[2022-03-16] MEDS: DIVALPROEX DELAY RELEASE 250 MG TABEC PO SCH ×2 (08:05→20:43)
[2022-03-16] MEDS: SUCRALFATE 1 GM TAB PO SCH ×4 (08:05→20:43)
[2022-03-16] MEDS: GABAPENTIN 300 MG CAP PO SCH ×2 (08:05→20:43)
[2022-03-16] MEDS: PANTOprazole 40 MG TAB PO SCH (08:05)
[2022-03-16] MEDS: ENOXAPARIN INJ 40 MG/0.4 ML SYR SQ SCH (08:06)
[2022-03-16] MEDS: FAMOTIDINE 40 MG TABLET PO SCH (08:06)
[2022-03-16] MEDS: MAGNESIUM OXIDE 400 MG TAB PO SCH (12:12)
[2022-03-16] MEDS: CALCIUM 600MG + VIT D 400 IU TAB PO SCH (12:12)
[2022-03-16] MEDS: SERTRALINE HCL 100 MG TABLET PO SCH (20:44)
[2022-03-16] MEDS: MONTELUKAST SODIUM 10 MG TABLET PO SCH (20:44)
[2022-03-17] MEDS: LEVOTHYROXINE SODIUM 100 MCG TABLET PO SCH (06:05)
--- NOTE | 2022-03-17 06:58 | Hospitalist Progress Note ---
Date of Service March 17, 2022 Assessment & Plan (1) Ambulatory dysfunction: Plan: 66-year-old woman with medical history of traumatic brain injury, hydrocephalous s/p CRA shunt placement, and ambulatory dysfunction was brought in to the ED for evaluation after falling at home. Ambulatory dysfunction/falls - acute on chronic - no metabolic derangement, no acute anatomical abnormalities detected on CT head or Xray of hip/pelvis - PT/OT to evaluate- Recommending SNF level rehab following discharge -- continue while inpatient --> Goal originally to be in [place] near D[place]. However, patient would like to stay closer to home (here). CM assisting. Calf Pain - Ongoing x1 month - No obvious signs of DVT other than pain at this time; exam w/o swelling - Appropriate DVT prophylaxis with Lovenox - Continue to monitor, if worsening consider b/l doppler Prediabetes - A1c 6.2 - carb consistent diet - Outpatient monitoring, counselling Depression/anxiety - Continue home sertraline, buspirone - Encouraged patient to connect with her family to Facetime with dog Polyneuropathy/chronic headache - Continue home gabapentin, Depakote, Tylenol GERD - Home Pepcid Urinary retention - Continue home tamsulosin Hypothyroidism -TSH 3.5 - Continue home levothyroxine Hypertension - Continue home amlodipine, losartan Code: DNR/DNI Dispo: Med-Surg -- pending placement FEN/GI: carb consistent diet DVT Prophylaxis: Lovenox 40 mg q24h (2) Retention of urine, unspecified: (3) GERD (gastroesophageal reflux disease): (4) Depression: Admission and Anticipated Discharge Date Admission Date: March 12, 2022 Supervising Physician Co-Signing Physician Notes Attending attestation Pt seen and examined in concert with Dr. Ventura. In agreement with the documented findings as noted in the resident documentation with any exceptions or additions as noted here. Resting comfortably in bed without acute complaint at present. On examination, VS reviewed, S1/S2 nl RRR no MCG. CTAB. Abd NT/ND BS+ve Weakness in the setting of hydrocephalus, deconditioning w/ frequent falls - discussion re: improved safety and working on more appropriate environment w/ case management. Else see resident documentation as noted. Subjective NAEO. Spirits are a little down this morning, missing dog. Mild bilateral leg pain; no swelling she's noticed. Feels crampy. No pain otherwise. No CP. No SOB. No n/v. Review of Systems Review of Systems: as per HPI Physical Exam Physical Exam: General: 66-year old F who is alert, oriented, and appears in no acute distress. HEENT: NCAT. - Eyes - Sclera are white, anicteric, and without injection. - Mouth - MMM - Neck - supple, no appreciable JVD Cardiac: Normal rate and regular rhythm; S1 and S2 present with no murmurs, rubs, or gallops. Pulmonary: Good respiratory effort with symmetric expansion of the chest. No use of accessory muscles. Lungs were clear to auscultation bilaterally with no crackles or wheezes. Abdominal: Normoactive bowel sounds. Abdomen was soft, nondistended, and non- tender to palpation. Extremities: Upper and lower extremities are warm and well perfused. LE, UE strength 4/5 bilaterally. No peripheral edema in the lower extremities bilate rally. Homens negative. Psych: Well-developed, well-nourished, appropriately dressed for occasion. Behavior is cooperative and appropriate. Affect is constricted. Insight is a ppropriate. Results & Data Results & Data ([facility]) Vital Signs (Past 12 Hours) Vital Signs Temp Pulse Resp BP Pulse Ox 03/16/22 23:07 36.9 C 67 16 115/67 96 Resident Activity Tracking Resident Involvement: Resident Care Provided Care Provided: Adult Hospital Medicine
[2022-03-17] MEDS: busPIRone 5 MG TAB PO SCH (08:27)
[2022-03-17] MEDS: TAMSULOSIN HCL 0.4 MG CAP PO SCH (08:27)
[2022-03-17] MEDS: GABAPENTIN 300 MG CAP PO SCH ×2 (08:27→20:45)
[2022-03-17] MEDS: FAMOTIDINE 40 MG TABLET PO SCH (08:27)
[2022-03-17] MEDS: SUCRALFATE 1 GM TAB PO SCH ×4 (08:27→20:46)
[2022-03-17] MEDS: DIVALPROEX DELAY RELEASE 250 MG TABEC PO SCH ×2 (08:27→20:45)
[2022-03-17] MEDS: PANTOprazole 40 MG TAB PO SCH (08:28)
[2022-03-17] MEDS: ENOXAPARIN INJ 40 MG/0.4 ML SYR SQ SCH (08:28)
[2022-03-17] MEDS: LOSARTAN POTASSIUM 25 MG TAB PO SCH (08:28)
[2022-03-17] MEDS: amLODIPine BESYLATE 5 MG TAB PO SCH (08:28)
[2022-03-17] MEDS: MAGNESIUM OXIDE 400 MG TAB PO SCH (11:47)
[2022-03-17] MEDS: CALCIUM 600MG + VIT D 400 IU TAB PO SCH (11:47)
[2022-03-17] MEDS ORDERED: COVID-19 VACC, TRIS(PFIZER)/PF 30 MCG/0.3 ML VIAL IM ONE (16:00)
[2022-03-17] MEDS ORDERED: COVID-19 VACC,MRNA(MODERNA)/PF 100 MCG/0.5 ML VIAL IM ONE (16:00)
[2022-03-17] MEDS: SERTRALINE HCL 100 MG TABLET PO SCH (20:45)
[2022-03-17] MEDS: MONTELUKAST SODIUM 10 MG TABLET PO SCH (20:46)
[2022-03-18] MEDS: LEVOTHYROXINE SODIUM 100 MCG TABLET PO SCH (05:33)
[2022-03-18 07:01] LABS: Creatinine Clr Calc Pharmacy 62.6 ml/min; Est GFR (African American) 90.3 ml/min; Est GFR (Non-African American) 77.9 ml/min
--- NOTE | 2022-03-18 07:02 | Hospitalist Progress Note ---
Date of Service March 18, 2022 Assessment & Plan (1) Ambulatory dysfunction: Plan: 66-year-old woman with medical history of traumatic brain injury, hydrocephalous s/p [employer] shunt placement, and ambulatory dysfunction was brought in to the ED for evaluation after falling at home. Ambulatory dysfunction/falls - acute on chronic - no metabolic derangement, no acute anatomical abnormalities detected on CT head or Xray of hip/pelvis - PT/OT to evaluate- Recommending SNF level rehab following discharge -- continue while inpatient - Placement: Likely [facility]. COVID booster given 03/18 Calf Pain - Ongoing x1 month - No obvious signs of DVT other than pain at this time; exam w/o swelling - Appropriate DVT prophylaxis with Lovenox - Continue to monitor, if worsening consider b/l doppler Prediabetes - A1c 6.2 - carb consistent diet - Outpatient monitoring, counselling Depression/anxiety - Continue home sertraline, buspirone - Encouraged patient to connect with her family to Facetime with dog Polyneuropathy/chronic headache - Continue home gabapentin, Depakote, Tylenol GERD - Home Pepcid Urinary retention - Continue home tamsulosin Hypothyroidism -TSH 3.5 - Continue home levothyroxine Hypertension - Continue home amlodipine, losartan Code: DNR/DNI Dispo: Med-Surg -- pending placement FEN/GI: carb consistent diet DVT Prophylaxis: Lovenox 40 mg q24h (2) Retention of urine, unspecified: (3) GERD (gastroesophageal reflux disease): (4) Depression: Admission and Anticipated Discharge Date Admission Date: March 12, 2022 Subjective NAEO Review of Systems Review of Systems: as per HPI Physical Exam Physical Exam: General: 66-year old F who is alert, oriented, and appears in no acute distress. HEENT: NCAT. - Eyes - Sclera are white, anicteric, and without injection. - Mouth - MMM - Neck - supple, no appreciable JVD Cardiac: Normal rate and regular rhythm; S1 and S2 present with no murmurs, rubs, or gallops. Pulmonary: Good respiratory effort with symmetric expansion of the chest. No use of accessory muscles. Lungs were clear to auscultation bilaterally with no crackles or wheezes. Abdominal: Normoactive bowel sounds. Abdomen was soft, nondistended, and non- tender to palpation. Extremities: Upper and lower extremities are warm and well perfused. LE, UE strength 4/5 bilaterally. No peripheral edema in the lower extremities bilaterally. Homens negative. Psych: Well-developed, well-nourished, appropriately dressed for occasion. Behavior is cooperative and appropriate. Affect is constricted. Insight is appropriate. Results & Data Results & Data ([facility]) Vital Signs (Past 12 Hours) Vital Signs Temp Pulse Resp BP Pulse Ox 03/17/22 22:02 36.9 C 55 L 16 130/84 96 Resident Activity Tracking Resident Involvement: Resident Care Provided Care Provided: Adult Hospital Medicine
[2022-03-18] MEDS: amLODIPine BESYLATE 5 MG TAB PO SCH (08:05)
[2022-03-18] MEDS: DIVALPROEX DELAY RELEASE 250 MG TABEC PO SCH (08:05)
[2022-03-18] MEDS: GABAPENTIN 300 MG CAP PO SCH (08:05)
[2022-03-18] MEDS: FAMOTIDINE 40 MG TABLET PO SCH (08:06)
[2022-03-18] MEDS: PANTOprazole 40 MG TAB PO SCH (08:06)
[2022-03-18] MEDS: TAMSULOSIN HCL 0.4 MG CAP PO SCH (08:06)
[2022-03-18] MEDS: busPIRone 5 MG TAB PO SCH (08:07)
[2022-03-18] MEDS: LOSARTAN POTASSIUM 25 MG TAB PO SCH (08:07)
[2022-03-18] MEDS: ENOXAPARIN INJ 40 MG/0.4 ML SYR SQ SCH (08:07)
[2022-03-18] MEDS: SUCRALFATE 1 GM TAB PO SCH ×2 (08:07→12:28)
[2022-03-18] MEDS: CALCIUM 600MG + VIT D 400 IU TAB PO SCH (11:02)
[2022-03-18] MEDS: MAGNESIUM OXIDE 400 MG TAB PO SCH (11:02)
--- NOTE | 2022-03-18 11:03 | Discharge Summary ---
Date of Service March 18, 2022 Admission HPI Per Admitting Provider 66-year-old woman with a medical history of hypertension, neuropathy, GERD, seizures, hypothyroidism, and depression, who presents today via ambulance to the emergency room after a fall. She usually ambulates with her walker, but has been growing weaker for months now. She admits to having multiple falls before this incident, though she was usually able to get back up and without lingering pain. She denies loss of consciousness. She denies recent illness. She reported hip pain bilaterally (left >right). Patient lives alone. She reports being compliant with her medications, and she has them bubble wrapped and sent to her by her pharmacy. ED course: Lab work was largely within normal limits. Imaging (CT cervical spine, CXR, CT head, XR hip/pelvis) all negative for acute trauma or abnormalities. However, on exam, she was severely limited without her walker, with poor mobility with it. Admission Exam Per Admitting Provider General: Patient is AAO x3. She appearsmildly anxious, but is in no acute distress. HEENT:Oropharynx is markedly dry; no lymphadenopathy; normal dentition. CV: Regular rate and rhythm. Normal S1 and S2. No murmurs gallops or rubs. No pedal edema. Pulmonary: Lungs are clear to auscultation bilaterally. No crackles, rhonchi, or wheezes. Abdomen:Large, distended abdomen. No bruits heard on auscultation. No ten derness to deep palpation. No guarding or rebound. MSK:Limited ROM at lower extremities. 4/5 strength at the hip on the right. 3/5 strength at the hip on the left. Psych:Mildly anxious. Congruent mood and affect. Principal Diagnosis weakness/deconditioning Discharge Exam General: 66-year old F who is alert, oriented, and appears in no acute distress. HEENT: NCAT. - Eyes - Sclera are white, anicteric, and without injection. - Mouth - MMM - Neck - supple, no appreciable JVD Cardiac: Normal rate and regular rhythm; S1 and S2 present with no murmurs, rubs, or gallops. Pulmonary: Good respiratory effort with symmetric expansion of the chest. No use of accessory muscles. Lungs were clear to auscultation bilaterally with no crackles or wheezes. Abdominal: Normoactive bowel sounds. Abdomen was soft, nondistended, and non- tender to palpation. Extremities: Upper and lower extremities are warm and well perfused. LE, UE strength 4/5 bilaterally. No peripheral edema in the lower extremities bilaterally. Psych: Well-developed, well-nourished, appropriately dressed for occasion. Behavior is cooperative and appropriate. Affect is constricted. Insight is appropriate. Discharge Data Allergies Allergy/AdvReac Type Severity Reaction Status Date / Time chocolate flavor Allergy Unknown GI UPSET Verified 03/12/22 19:53 milk Allergy Unknown GI UPSET Verified 03/12/22 19:53 nut - unspecified Allergy Unknown GI Unverified 03/12/22 19:53 UPSET-PEANUTS, TREE NUTS codeine AdvReac Intermediate nausea Verified 03/12/22 19:53 vomiting Consultations 03/12/22 18:28 ED Decision to Admit Stat Ordered Studies 03/12/2022 16:37 SINGLE VIEW PELVIS; 2 VIEWS RIGHT HIP; 2 VIEWS LEFT HIP CLINICAL HISTORY: Fall. FINDINGS: An AP view of the pelvis with AP and frog-leg views of the right and left hip are correlated with pelvic CT dated 07/08/2021. The skeletal structures are osteopenic. There is no radiographic evidence of acute fracture involving the hips or bony pelvis. Mild degenerative joint space narrowing is present in the hips, right greater than left. The sacroiliac joints are normal. The overlying soft tissues are within normal limits. Phleboliths are noted in the pelvis. IMPRESSION: No acute bony abnormality is identified. 03/12/22 16:03 CT cervical spine wo con Stat CT head/brain wo con Stat CT head/brain wo con CLINICAL HISTORY: fall Technique: Contiguous axial CT images of the head were acquired from the base of the skull to the vertex without intravenous contrast administration. Images were viewed in brain, subdural and bone windows. Automated dose lowering techniques and/or adjustment according to patient size were utilized for this exam. Comparison: Comparison is made to CT head 01/18/2022 Findings: Redemonstration of ventriculomegaly with a shunt catheter terminating in the left aspect of the third ventricle and/or left lateral ventricle. Imaged portions of the paranasal sinuses and mastoid air cells are clear. The orbits appear normal. There are no acute fractures of the calvaria or scalp swelling. Impression: No evidence of hemorrhage or other acute finding. Redemonstration of hydrocephalus with a PHYSICS FACULTY MEMBER shunt in place. CT SCAN OF THE CERVICAL SPINE CLINICAL HISTORY: Fall. COMPARISON STUDY: CT of the cervical spine dated 01/18/2022. TECHNIQUE: CT scan of the cervical spine is performed from the skull base to the upper thoracic spine. Images are reviewed in the axial, sagittal, and coronal planes. IV contrast was not administered for this examination. A dose lowering technique was utilized adhering to the principles of ALARA. FINDINGS: Skeletal structures: The skeletal structures are osteopenic. There is no evidence of fracture or subluxation involving the cervical spine. Vertebral body height and alignment are maintained. There is straightening of the cervical lordosis. Anterior osteophytes are seen throughout. The odontoid process and lateral masses are intact. The atlantoaxial articulation is preserved noting mild productive degenerative change. The spinous processes appear intact. There is mild multilevel cervical spondylosis. Uncovertebral and facet arthropathy are noted at several levels. Intervertebral discs: There is moderate to advanced disc space narrowing at C4- C5, C5-C6, and C6-C7 with associated endplate sclerosis. Milder narrowing is seen at the remaining cervical levels. Central canal: Large posterior disc osteophyte complexes at C4-C5, C5-C6, and C6-C7 likely contribute to acquired compromise of the central canal. Soft tissues: The prevertebral and paraspinous soft tissues are within normal limits. Atherosclerotic calcification is noted in the carotid bulbs. The thyroid gland is heterogeneous. A ventriculostomy catheter is noted in the soft tissues of the right anterior neck. Calvarium: The visualized calvarium at the skull base appears intact. Brain parenchyma: Partially visualized brain parenchyma at the skull base shows involutional change and severe hydrocephalus.. Sinuses and mastoids: The visualized paranasal sinuses are clear. The mastoid air cells are well pneumatized. Lung apices: Clear as visualized. IMPRESSION: 1. There is no evidence of fracture or subluxation involving the cervical spine. 2. Osteopenia and spondylotic change as above. Hospital Course (1) Ambulatory dysfunction: 66-year-old woman with medical history of traumatic brain injury, hydrocephalous s/p PH[employer] FACULT[employer] MEMBER shunt placement, and ambulatory dysfunction was brought in to the ED for evaluation after falling at home. Ambulatory dysfunction/falls - acute on chronic issue - no metabolic derangement, no acute anatomical abnormalities detected on CT head or Xray of hip/pelvis - PT/OT to evaluate- Recommending SNF level rehab following discharge - to [facility] - COVID booster given 03/17/22 Calf Pain - Ongoing x1 month - No obvious signs of DVT other than pain at this time; exam w/o swelling - Appropriate DVT prophylaxis with Lovenox while here - Improved with heat somewhat - Can trial muscle relaxer if ongoing/worsening Prediabetes - A1c 6.2 - carb consistent diet - Outpatient monitoring, counselling will be required Depression/anxiety - Continue home sertraline, buspirone - Encouraged patient to connect with her family to Facetime with dog during rehab Polyneuropathy/chronic headache - Continue home gabapentin, Depakote, Tylenol GERD - Home Pepcid Urinary retention - Continue home tamsulosin Hypothyroidism - TSH 3.5 - Continue home levothyroxine Hypertension - Continue home amlodipine, losartan Code: DNR/DNI (2) Retention of urine, unspecified: (3) GERD (gastroesophageal reflux disease): (4) Depression: Total Time Total Time Spent Total Time Spent (In Minutes): 30 Discharge Plan Discharge Items Patient Disposition: Transfer [facility] Reason For Visit: FALLS Discharge Diagnosis: amublatory dysfunction / fall Activity: Per Instructions section Non-emergency contact: Primary Care Provider Call non-emergency contact if: your symptoms worsen, your pain is not controlled and your temperature is above 101 Follow-up/Referrals: Andrew Diane MD [Primary Care Provider] - Diet: Carb Consistent or DM2 Addtl Attending Provider Instructions: 66-year-old woman with medical history of traumatic brain injury, hydrocephalous s/p [employer] MEMBER shunt placement, and ambulatory dysfunction was brought in to the ED for evaluation after falling at home. Ambulatory dysfunction/falls - acute on chronic issue - no metabolic derangement, no acute anatomical abnormalities detected on CT head or Xray of hip/pelvis - PT/OT to evaluate- Recommending SNF level rehab following discharge - to [facility] - COVID booster given 03/17/22 Calf Pain - Ongoing x1 month - No obvious signs of DVT other than pain at this time; exam w/o swelling - Appropriate DVT prophylaxis with Lovenox while here - Improved with heat somewhat - Can trial muscle relaxer if ongoing/worsening Prediabetes - A1c 6.2 - carb consistent diet - Outpatient monitoring, counselling will be required Depression/anxiety - Continue home sertraline, buspirone - Encouraged patient to connect with her family to Facetime with dog during rehab Polyneuropathy/chronic headache - Continue home gabapentin, Depakote, Tylenol GERD - Home Pepcid Urinary retention - Continue home tamsulosin Hypothyroidism - TSH 3.5 - Continue home levothyroxine Hypertension - Continue home amlodipine, losartan Code: DNR/DNI Pending Studies at Discharge: No Stand-Alone Forms: [facility] Skilled Items Patient informed of condition?: Yes DNR: Yes Discharge Level of Care: Skilled Communicable Disease: No Discharge Prognosis: Improving Lines: None Urinary Catheter: No Medications and DC Order Prescriptions: New tamsulosin 0.4 mg Capsule 0.4 mg PO DAILY 30 Days Qty: 30 RF: 0 Continued buspirone 5 mg tablet 5 mg PO QAM RF: 0 acetaminophen [Pain Relief Extra Strength] 500 mg tablet 1,000 mg PO TID RF: 0 tamsulosin 0.4 mg capsule 0.4 mg PO QAM RF: 0 divalproex [Depakote] 250 mg tablet,delayed release (DR/EC) 250 mg PO BID RF: 0 sucralfate [Carafate] 1 gram tablet 1 g PO QID RF: 0 famotidine [Pepcid] 40 mg tablet 40 mg PO QAM RF: 0 sertraline [Zoloft] 100 mg tablet 100 mg PO HS RF: 0 calcium carbonate-vitamin D3 [Calcium 600 + D(3)] 600 mg(1,500mg) -200 unit tablet 1 tab PO DAILY@1200 RF: 0 pantoprazole [Protonix] 20 mg tablet,delayed release (DR/EC) 20 mg PO QAM RF: 0 levothyroxine [Synthroid] 100 mcg tablet 100 mcg PO QAM RF: 0 magnesium oxide [MagOx] 400 mg (241.3 mg magnesium) tablet 400 mg PO DAILY@1200 RF: 0 amlodipine [Norvasc] 10 mg tablet 10 mg PO QAM RF: 0 losartan [Cozaar] 25 mg tablet 25 mg PO QAM RF: 0 gabapentin [Neurontin] 300 mg capsule See Rx Instructions .ROUTE .COMPLEX RF: 0 montelukast [Singulair] 10 mg tablet 10 mg PO HS RF: 0 loratadine [Allergy Relief (loratadine)] 10 mg tablet 10 mg PO QAM RF: 0 Discharge Orders: Discharge Order (Routine); Ordered 03/18/22 Ordered By: Rito Chávez/Other Patient Handouts: Prediabetes, 5 Steps for Eating Healthier Admission Data Admit Date/Time: 03/12/22 19:33 Attending Provider: Ludwig Curtis Admit Provider: Wyatt García Primary Care Provider: Andrew Diane Other Providers: Wyatt García ; Rito Chávez Other Interventions: Discharge Summary Assessment (RN) Last Done: 03/18/22 12:06 Supervising Physician Co-Signing Physician Notes I also saw the patient concurrent the resident physician and confirmed diaz portions the history and physical examination. I agree with the impression and plan as noted in the resident documentation. She has no complaints today. She is aware of the pending transfer. Exam 130/84, 82, 16, 37.2, 100 percent room air Respirations nonlabored, lungs clear Heart regular Weakness/hydrocephalus/deconditioning Placement at [facility]; transport has been arranged Chronic, stable, medical additions including impaired fasting glucose, depression/anxiety, GERD, urinary retention, hypothyroidism, and hypertension as delineated above. Resident Activity Tracking Resident Involvement: Resident Care Provided Care Provided: Adult Hospital Medicine
== END 2022-03-18 16:05 ==
LOC: ED 15:25 → INTOOBSV 19:33 → 3N 19:33 → SUATTDRO 19:33 → 3N 21:34